=== PATIENT | male | born 1995 | race African-American/Black ===

== ENCOUNTER 2021-03-03 06:43 | Emergency (ER) | payer SELFPAY ==
[2021-03-03 07:06] VITALS: BP 129/84; PULSE 56; TEMP 97.7; BMI 25.0
== END 2021-03-03 07:40 | disposition left against medical advice (07) ==
LOC: JER 06:43
DX: S61.312A Laceration without foreign body of right middle finger with damage to nail, initial encounter (principal)
CPT/HCPCS: 99281-25

== ENCOUNTER 2021-03-26 20:42 | Emergency (ER) | payer SELFPAY ==
[2021-03-26 20:48] VITALS: BMI 27.3
[2021-03-26] MEDS ORDERED: IBUPROFEN 400 MG TABLET (FP) PO ONE ×2 (21:58→22:30)
[2021-03-26] MEDS ORDERED: MAG HYDROX/AL HYDROX/SIMETH 30 ML UNIT-DOSE CUP PO ONE (21:59)
[2021-03-26] MEDS ORDERED: FAMOTIDINE 10 MG TABLET PO ONE (21:59)
[2021-03-26] MEDS ORDERED: MAG HYDROX/AL HYDROX/SIMETH 30 ML UNIT-DOSE CUP ONE (22:30)
[2021-03-26] MEDS ORDERED: FAMOTIDINE 10 MG TABLET ONE (22:30)
[2021-03-26 22:52] LABS: BASO % 0.9 % (0-2.0); EOS % 0.9 % (0-4.5); HEMATOCRIT 38.7 % (35.4-49); HEMOGLOBIN 13.7 GM/dL (11.7-16.9); LYMPH % 31.3 % (8-40); MCH 30.6 pg (25.7-33.7); MCHC 35.5 g/dl (32.0-35.9); MEAN CELL VOLUME 86.2 fl (80-96); MEAN PLT VOLUME 7.5 fl (7.5-11.1); MONO % 6.6 % (3.8-10.2); NEUT % 60.3 % (42.8-82.8); PLATELET COUNT 321 10^3/uL (134-434); RBC 4.49 M/mm3 (4.00-5.60); RDW 14.1 % (11.9-15.9); WHITE BLOOD COUNT 11.9 K/mm3 (4.0-10.0)
[2021-03-26 23:07] LABS: CALCIUM 8.7 mg/dL (8.5-10.1)
[2021-03-26 23:08] LABS: ALBUMIN 3.7 g/dl (3.4-5.0); BLOOD UREA NITROGEN 9.1 mg/dL (7-18)
[2021-03-26 23:11] LABS: CREATININE 1.1 mg/dL (0.55-1.3)
[2021-03-26 23:13] LABS: BILIRUBIN,TOTAL 0.3 mg/dL (0.2-1); TOT PROT 6.4 g/dl (6.4-8.2)
[2021-03-27 01:58] VITALS: BP 149/67; PULSE 58; TEMP 97.7
[2021-03-27 10:08] LABS: HIV INTERPRETATION NEGATIVE (NEGATIVE)
== END 2021-03-27 10:23 | disposition home or self-care (01) ==
LOC: JER 20:42
DX: Z11.3 Encounter for screening for infections with a predominantly sexual mode of transmission (principal)
CPT/HCPCS: 36415; 80053; 85025; 86780; 87389; 87491; 87591; 87661; 99284-25

== ENCOUNTER 2022-03-11 20:34 | Emergency (ER) | payer OTHER ==
[2022-03-11 20:41] VITALS: BP 110/77; PULSE 84; TEMP 97.8; BMI 25.0
[2022-03-11] MEDS ORDERED: ACETAMINOPHEN 500 MG TABLET (FP) PO ONE (22:17)
[2022-03-11] MEDS ORDERED: KETOROLAC TROMETHAMINE 30 MG/1 ML VIAL IM ONE (22:17)
[2022-03-11] MEDS ORDERED: CYCLOBENZAPRINE HCL 10 MG TABLET (FP) PO ONE (22:17)
[2022-03-11] MEDS ORDERED: ACETAMINOPHEN 500 MG TABLET (FP) ONE (23:16)
[2022-03-11] MEDS ORDERED: KETOROLAC TROMETHAMINE 30 MG/1 ML VIAL ONE (23:16)
[2022-03-11] MEDS ORDERED: CYCLOBENZAPRINE HCL 10 MG TABLET (FP) ONE (23:17)
== END 2022-03-12 00:50 | disposition home or self-care (01) ==
LOC: JERFT 20:34
PROC: 3E0233Z Introduction of Anti-inflammatory into Muscle, Percutaneous Approach (ICD-10-PCS; principal; 2022-03-11)
DX: M79.644 Pain in right finger(s) (principal)
CPT/HCPCS: 99284-25